=== PATIENT | male | born 1980 | race Caucasian/White ===

== ENCOUNTER 2023-03-05 08:54 | Emergency (ER) | payer OTHER, SELFPAY ==
--- NOTE | 2023-03-05 09:11 | ED.BACK ---
HPI - Back Pain/Injury General Chief Complaint: Back Pain/Injury Stated Complaint: back pain/rt arm pain Time Seen by Provider: 03/05/23 09:43 Source: patient and RN notes reviewed Mode of arrival: ambulatory Limitations: no limitations History of Present Illness HPI Narrative: 42-year-old male presents with concern for right low back pain for 4 weeks without injury. He reports increasing his workouts before the pain started. He reports he saw chiropractor 1 time with some relief. Reports he has used a 10s unit with occasional relief. He denies any loss of bowel or bladder function, perianal anesthesia, weakness in the extremity. He denies abdominal pain or fever. In a separate complaint he reports right elbow tendinitis. Reports that pain has been there for over a week. Reports he has had this in the past and resolved on its own. Reports he occasionally takes ibuprofen for his symptoms. MD elicited complaint: back pain Related Data Allergies Allergy/AdvReac Type Severity Reaction Status Date / Time No Known Allergies Allergy Verified 03/05/23 09:33 Review of Systems Review of Systems: CONSTITUTIONAL: Denies malaise, chills, sweats, or fever. CARDIOVASCULAR: Denies chest pain, palpitations, or edema. RESPIRATORY: Denies cough or dyspnea. GASTROINTESTINAL: Denies abdominal pain, nausea, vomiting, diarrhea, loss of bowel function GENITOURINARY: Denies dysuria, hematuria, frequency, loss of bladder function. SKIN: Denies rash or itching. MUSCULOSKELETAL: Reports right low back pain. Reports right elbow NEUROLOGIC: Denies numbness, weakness, or headache. All systems reviewed & are unremarkable except as noted in HPI and below PMFSH Past Medical History Medical History (Updated 03/05/23 @ 09:54 by Iveth Olson NP) Allergies Deviated septum Surgical History Surgical History (Updated 01/25/20 @ 10:44 by Ritika Chowdary CMA) H/O sinus surgery Family History Family History (Updated 01/25/20 @ 15:38 by Ritika Chowdary CMA) Grandparent Carcinoma of colon Social History Social History (Updated 01/25/20 @ 15:38 by Ritika Chowdary CMA) Smoking status: Never smoker Alcohol intake: current Alcohol use details: socially Comments At time of signature, agree with nursing past medical, surgical, social and family history. There is no relevant family history pertinent to the presenting complaint Exam Narrative: GENERAL: Well-appearing, well-nourished, and in no acute distress. HEAD: Normocephalic, atraumatic. EYES: PERRLA and EOMI. NECK: Supple. No lymphadenopathy. CHEST: Clear to auscultation. No respiratory distress. HEART: Regular rate and rhythm. Distal pulses palpable and equal, cap refill <3 seconds ABDOMEN: Soft, nontender, nondistended, normal active bowel sounds, no palpable or pulsatile masses. No CVA tenderness MUSCULOSKELETAL: Normal range of motion and strength in all extremities; 5/5 strength with hip flexion and extension, dorsiflexion and extension, knee flexion and extension, plantar flexion and extension. Normal sensation in dermatomal distributions with sensitivity to light touch and pain. No midline back tenderness to palpation. No paraspinal tenderness. Transfers from lying to sitting to standing. Right elbow and upper extremity have normal strength and sensation, normal range of motion. No edema or ecchymosis. 5/5 strength with digit and elbow flexion and extension. Normal sensation with sensitivity to light touch and pain. No point tenderness. No open wounds, no skin tenting, no devitalized tissue or atrophy, no trophic changes, no obvious deformity, alignment normal, nearby joints and structures intact. Distal pulses palpable and equal bilaterally, skin warm, dry, pink. Capillary refill less than 3 seconds. SKIN: Warm, dry, no rash. No ecchymosis, erythema, open wounds to back. NEURO: No focal deficits. Alert and oriented x3. Reflexes intact. Normal gait. PSYCH: Normal mood and affect
[2023-03-05 09:16] VITALS: BP 116/70; PULSE 71; RESP 16; TEMP 36.6; O2SAT 98
== END 2023-03-05 09:58 | disposition home or self-care (01) ==
PROVIDERS: Emergency Provider Nurse Practitioner
DX: M54.50 Low back pain, unspecified (principal); M77.8 Other enthesopathies, not elsewhere classified
CPT/HCPCS: 99213; G0463

== ENCOUNTER 2023-04-05 14:46 | Outpatient (RCR) | payer OTHER, SELFPAY ==
--- NOTE | 2023-04-05 16:24 | PTOPEVAL1 ---
Assessment and note entered by Francheska Hernandez, PT, DPT Evaluation Information Assessment Status Evaluation Diagnosis low back pain Onset 2 months Subjective Information Pt states he has had excruciating pain for almost 2 months without relief, he attributes this to grappling at work. Pt states a couple of days ago he was running and he felt some relief. He states since then his pain has been much better but feels like it might be starting to increase again. He states based of research he thinks it might be his SIJ. He almost reports elbow pain with resisted elbow flexion. Reported Pain Level Pain Score 3: Self Report Assessment PT Clinical Summary Patrick is an active 42 y/o male who presents to therapy today with a diagnosis of low back pain. Today he demonstrates good lumbar mobility with no increase in pain, great LE strength, and good LE ROM. He demonstrates minor pelvic malalignments during the supine leg length test but this was corrected with muscle energy techniques. He demonstrates no tenderness to palpation except in his R biceps muscle belly. He was instructed in a home exercise and stretching program to treat any further pelvic misalignments and to aid with his elbow pain. He plans to follow up in 1-2 months if needed. Plan of Care Treatment Frequency and follow up in 1 month if needed Duration These treatments will address the objective and functional deficits as defined above. The patient will be advanced safely and appropriately in order for the patient to progress towards his/her prior level of function. Additional exercises will be introduced and as well as a comprehensive home exercise program upon discharge, if needed, ?to ensure carryover of functional gains achieved in the clinic. This treatment plan has been reviewed and agreement upon by the patient.
--- NOTE | 2023-05-13 10:14 | PCPTNOTE ---
Called and LVM following up, will d/c in 1 week if we do not hear from him.
--- NOTE | 2023-06-24 09:16 | PTOPDC ---
Assessment and note entered by Francheska Hernandez, PT, DPT Evaluation Information Assessment Status Discharge - Pt Not Present Diagnosis low back pain Onset 2 months Subjective Information Pt was evaluated on 03/25/23 and did not complete any treatments following therapy. Called and LVM about following up if needed and have not heard from him, he will be discharged at this time. Assessment PT Clinical Summary If pt needs additional therapy at a later date he will need a new order.
== END 2023-06-24 09:22 | disposition home or self-care (01) ==
LOC: ANHGOSHPT 14:46
PROVIDERS: Visit Provider Nurse Practitioner
DX: M54.50 Low back pain, unspecified (principal)
CPT/HCPCS: 97110; 97140; 97161

== ENCOUNTER 2023-05-27 11:33 | Emergency (ER) | payer BC, SELFPAY ==
[2023-05-27 11:41] VITALS: BP 118/76; PULSE 67; RESP 16; TEMP 36.6; O2SAT 98
--- NOTE | 2023-05-27 11:41 | ED.SKABFB ---
HPI - Skin/Abscess/Foreign Bdy General Chief complaint: Skin/Abscess/Foreign Body Stated complaint: RASH Time Seen by Provider: 05/27/23 11:41 Source: patient and RN notes reviewed Mode of arrival: ambulatory Limitations: no limitations History of Present Illness HPI narrative: 43-year-old male presents with concern for rash. Reports possible poison eamon rash on his arms, torso. Reports the rash started early last week. Reports he has been using hydrocortisone and triamcinolone cream. He reports his eyebrows are itchy, but he did not notice a rash there. He denies swollen lips, swollen tongue, trouble breathing. MD complaint: rash Related Data Allergies Allergy/AdvReac Type Severity Reaction Status Date / Time No Known Allergies Allergy Verified 05/27/23 11:41 Review of Systems Review of Systems: CONSTITUTIONAL: Denies malaise, chills, sweats, or fever. EYES: Denies redness, or discharge. ENT: Denies rhinorrhea, congestion, swollen lips, swollen tongue CARDIOVASCULAR: Denies chest pain, palpitations, or edema. RESPIRATORY: Denies cough or dyspnea. GASTROINTESTINAL: Denies abdominal pain, nausea, vomiting SKIN: Reports itchy rash on his arms, torso, reports itchy eye brows MUSCULOSKELETAL: Denies joint pain or myalgia. NEUROLOGIC: Denies headache. All systems reviewed & are unremarkable except as noted in HPI and below PMFSH Past Medical History Medical History Allergies Deviated septum Surgical History Surgical History H/O sinus surgery Family History Family History Grandparent Carcinoma of colon Social History Social History Smoking status: Never smoker Alcohol intake: current Alcohol use details: socially Lack of Transportation: No Lack of Food: Never True Current Housing: I Have Housing Concerned About Future Housing: No Difficulty Paying Gas/Electric Bills: No Difficulty Paying for Meds: No Currently Unemployed: No Education: Bachelor's Degree Difficulty w/ Childcare or Family Care: No Living arrangements: with family Occupation/Education: occupation Additional occupation/education comments: [place] [employer]- [place] Agree to blood products: Yes Comments At time of signature, agree with nursing past medical, surgical, social and family history. There is no relevant family history pertinent to the presenting complaint Exam Narrative: GENERAL: Well-appearing, well-nourished, and in no acute distress. HEAD: Normocephalic, atraumatic. EYES: PERRLA, conjunctivae clear, and EOMI. ENT: Mucous membranes moist. Oropharynx without edema, erythema or lesions. NECK: Supple. No lymphadenopathy CHEST: Clear to auscultation. No respiratory distress. HEART: Regular rate and rhythm. SKIN: Warm, dry. Erythematous papules and your regular patches noted to the arms, torso NEURO: Alert and oriented x3. PSYCH: Normal mood and affect Course Course Emergency Course: Patient is aware of diagnosis, understands and agrees to treatment plan. Anticipatory guidance given. Patient agrees to follow-up as directed and is aware of reasons to seek care at the emergency department. Portions of this record may have been created with voice recognition software Level of Care: Express Care Visit Vital Signs Vital signs: Reviewed. MDM - Skin/Abscess/Foreign Bdy MDM Narrative Medical decision making narrative: Does not appear at this time to be erythema multiforme, bullous, SJS, TEN; no evidence at this time to suggest RMSF, endocarditis or Lyme disease; patient looks well, nontoxic and is tolerating oral intake; no neurologic signs or symptoms; no headache, photophobia or neck pain; afebrile; appropriate for initial outpatient treatment; discussed the importance of
== END 2023-05-27 11:47 | disposition home or self-care (01) ==
PROVIDERS: Emergency Provider Nurse Practitioner; PCP Internal Medicine
DX: L24.7 Irritant contact dermatitis due to plants, except food (principal)
CPT/HCPCS: 99213; G0463

== ENCOUNTER → 2023-07-12 07:52 | Outpatient (CLI) | payer BC, SELFPAY ==
--- NOTE | ~2023-07-12 | XR_ITS ---
EXAMINATION: XR lumbar spine 2-3V DATE: 07/12/2023 08:11 INDICATION: Low back pain. TECHNIQUE: 3 views of lumbar spine were obtained. COMPARISON: None. FINDINGS: Bone alignment is normal. Vertebral body heights and intervertebral disc heights are normal . The facet joints are unremarkable. IMPRESSION: 1. Normal lumbar spine. Reviewed, dictated and finalized at location A. IMPRESSION: 1. Normal lumbar spine.
--- NOTE | ~2023-07-12 | XR_ITS ---
EXAMINATION: XR pelvis 1-2V DATE: 07/12/2023 08:10 INDICATION: Low back pain. TECHNIQUE: An anteroposterior view of the pelvis was obtained. COMPARISON: None. FINDINGS: Bone alignment is normal. No fracture. There is mild osteoarthritis of the hips characteriz ed by tiny osteophytes. No joint space narrowing. IMPRESSION: 1. Mild osteoarthritis of the hips. Reviewed, dictated and finalized at location A.
--- NOTE | ~2023-07-12 | XR_ITS ---
EXAMINATION: XR elbow RT min 3V DATE: 07/12/2023 08:10 INDICATION: 6 months of anterior right elbow pain TECHNIQUE: Anteroposterior, two oblique and lateral views of the right elbow were obtained. COMPARISON: None. FINDINGS: Alignment is normal. No fracture or joint effusion. Joint spaces are normal. Soft tissues are unremar kable. IMPRESSION: 1. Negative right elbow radiographs. Reviewed, dictated and finalized at location A.
== END ==
PROVIDERS: PCP Anesthesiology Pain Medicine; Visit Provider Anesthesiology Pain Medicine
DX: M25.521 Pain in right elbow (principal); M54.50 Low back pain, unspecified; M16.0 Bilateral primary osteoarthritis of hip
CPT/HCPCS: 72100; 72170; 73080

== ENCOUNTER 2025-03-04 08:01 | Emergency (ER) | payer OTHER, SELFPAY ==
--- NOTE | 2025-03-04 08:06 | ED_ITS ---
HPI - URI/Sore Throat General Chief Complaint: Upper Respiratory Infection Stated Complaint: SINUS Time Seen by Provider: 03/04/25 08:13 Source: patient, RN notes reviewed and old records reviewed Mode of arrival: ambulatory Limitations: no limitations History of Present Illness HPI Narrative: 44-year-old male presents to the [facility] with complaints of sinus pain, pressure that has been increasing over the last 10 days. Patient with a history of sinus surgery. Patient reports that he has tried Sudafed, Mucinex D and Tylenol. Related Data Home Medications ?Medication ?Instructions ?Recorded ?Confirmed ?Last Taken ?Type No Home Medications 03/04/25 03/04/25 Unknown History Allergies Allergy/AdvReac Type Severity Reaction Status Date / Time No Known Allergies Allergy Verified 03/04/25 08:12 Review of Systems Review of Systems: All systems reviewed & are unremarkable except as noted in HPI and below Constitutional: Constitutional: Reports no additional constitutional com plaints ENT: Reports as per HPI, Denies otalgia, Reports post nasal drip, Reports sinus pain, Reports sinus pressure and Denies sore throat Cardiovascular: Cardiovascular: Reports no additional cardiovascular complaints, Denies chest pain and Denies dyspnea Respiratory: Respiratory: Reports no additional respiratory complaints, Denies chest congestion, Denies cough and Denies dyspnea Musculoskeletal: Musculoskeletal: Reports no additional musculoskeletal complaints Integumentary/Breasts: Skin/Breast: Reports system reviewed and no additional complaints, except as docu PMFSH Past Medical History Medical History Cough Sinusitis, acute Deviated septum Allergies Surgical History Surgical History H/O sinus surgery Family History Family History Grandparent Carcinoma of colon Social History Social History Smoking status: Never smoker Alcohol intake: current Alcohol use details: socially Lack of Transportation: No Lack of Food: Never True Current Housing: I Have Housing Concerned About Future Housing: No Difficulty Paying Gas/Electric Bills: No Difficulty Paying for Meds: No Currently Unemployed: No Education: Bachelor's Degree Difficulty w/ Childcare or Family Care: No Living arrangements: with family Occupation/Education: occupation Additional occupation/education comments: [place] [employer]- [place] Agree to blood products: Yes Comments At the time of my signature, I reviewed and agree with the nursing past medical, surgical, social, and family history. There is no relevant family history pertinent to the patient complaint. Exam Const: General: cooperative, healthy appearing, comfortable, no acute distress, well developed, alert and well nourished Nutritional Appearance: well nourished Orientation/consciousness: patient oriented x3 Limitations: no limitations HENMT: Head: normal to inspection Ears: hearing grossly normal bilaterally, external ears normal, TM's normal bilaterally, EAC's normal, mastoids normal and no periauricular adenopathy Face/Nose/Sinus: Normal external nose present, No nasal discharge present, face symmetric and sinus tenderness Mouth: Yes Normal oral and palatal mucosa present, Yes lip normal, Yes tongue normal and Yes moist mucous membranes Throat: posterior oropharynx normal, uvula midline, postnasal drainage and no uvular edema Eyes: General: appearance normal, both eyes and all related structures Alignment and Position: alignment normal Neck: Neck: normal visual inspection, full ROM, no lymphadenopathy and no meningeal signs Chest: Chest palpation & inspection: normal inspection of the chest Resp: Effort & Inspection: normal respiratory effort and able to speak in complete sentences Auscultation: clear to auscultation bilaterally, no crackles, no rales, no rhonchi and no wheezes Cardio: Rate: regular rate Skin: General skin exam: normal color and no rashes or lesions noted Neuro: General: patient oriented x3, gait normal, moves all extremities and no meningeal signs Cognition (Neuro): normal cognition Speech: normal speech Gait exam (Neuro): Normal gait present Extrem: General: normal to inspection, full ROM, capillary refill normal and normal gait Psych: Appearance: grossly normal and well kempt Mental Status: mental status grossly normal Speech and movement: Normal speech and movement present and Clear speech present Affect: normal affect Attitude: cooperative Course Course Level of Care: Express Care Visit Vital Signs Vital signs: Vital Signs Temperature 99.1 F 03/04/25 08:11 Pulse Rate 78 03/04/25 08:11 Respiratory Rate 16 03/04/25 08:11 Blood Pressure 111/73 03/04/25 08:11 Pulse Oximetry 98 03/04/25 08:11 Temperature 99.1 F 03/04/25 08:11 Pulse Rate 78 03/04/25 08:11 Respiratory Rate 16 03/04/25 08:11 Blood Pressure 111/73 03/04/25 08:11 Pulse Oximetry 98 03/04/25 08:11 Reviewed MDM - URI/Sore Throat MDM Narrative Medical decision making narrative: Patient sitting in exam room. Nontoxic, vitals stable. Patient presents with 10 day history of sinus symptoms. Discussed with patient [id number] products to continue, will prescribe doxycycline Medrol Dosepak due to length of symptoms Patient appropriate for outpatient treatment with close follow-up Discharge instructions reviewed with patient, as well as provided in writing per nursing staff. The instructions also include specific and strict return/GO TO THE ER as well as f/u information. All questions have been answered, and the patient deny any further questions with discharge and discharge plan. Some parts of this dictation were generated by voice recognition software and may contain typographical and/or grammatical inaccuracies. Differential Diagnosis Differential diagnosis: Likely upper respiratory infection, otitis media, sinusitis, viral infection, bronchitis, influenza and pharyngitis Critical Care Time Critical Care Time Critical Care Time: No Discharge Plan Discharge Clinical Impression: Sinusitis Qualifiers: Sinusitis location: pansinusitis Chronicity: acute Recurrence: not specified as recurrent Qualified Code(s): J01.40 - Acute pansinusitis, unspecified Patient Disposition: Home Condition: Stable Instructions: Antibiotic Form, Sinusitis (ED), Postnasal Drip (DC) Additional Instructions: It is very important to treat your symptoms with [id number] products as well as prescribed medication. Drink plenty of water, Gatorade, Pedialyte, ice pops or Jell-O. -Alternate Tylenol and Motrin per package directions for fever or pain. You can alternate every 4 hours -Antihistamine medication such as Zyrtec/Claritin/Shefali during the day can help improve symptoms. -doing daily nasal irrigations can help relieve pressure your sinuses. Things like a Neti pot -Use Flonase twice a day for 5 days then daily to help reduce the inflammation and dry up your sinuses. -You can also use Mucinex. Be sure to drink plenty of water with this medication at least 8 ounces with every dose and it is important to drink 8 to 10 glasses of water per day. Water is a natural decongestant -Eat and drink things that are easy to swallow, like tea or soup, or popsicles. -Oral rinses such as: Salt water gargles and/or may use topical anesthetic (eg. Chloraseptic spray) or lozenges to relieve dryness or throat pain). -Frequent hand washing or hand straddle truck driver is one of the best ways to prevent spread of infection. -Using a vaporizer or humidifier at night will also help thin secretions and help with coughing up phlegm. -Follow up with primary care provider in 7-10 days if condition is not improving - For new or worsening symptoms go directly to the nearest ER Patient Language: Luxembourgish Prescriptions: New doxycycline monohydrate 100 mg tablet 100 mg PO BID Qty: 20 0RF methylprednisolone [Medrol (Justo)] 4 mg tablets,dose pack See Rx Instructions PO .COMPLEX Qty: 21 0RF Rx Instructions: orally per package directions No Action No Home Medications Follow-up/Referrals: Gadiel Madison DO [Primary Care Provider] - 2 Weeks ([facility] follow [facility]) Stand Alone Forms: Work/School Release IP Time of Disposition: 08:26
[2025-03-04 08:11] VITALS: BP 111/73; PULSE 78; RESP 16; TEMP 37.3; O2SAT 98
== END 2025-03-04 08:33 | disposition home or self-care (01) ==
PROVIDERS: Emergency Provider Nurse Practitioner; PCP Internal Medicine
DX: J01.40 Acute pansinusitis, unspecified (principal)
CPT/HCPCS: 99213; G0463